=== PATIENT | female | born 1995 | race Two or more races ===

== ENCOUNTER 2021-05-13 14:22 | Outpatient (CLI) | payer OTHER | END 2021-05-13 15:50 | disposition home or self-care (01) | LOC: PRENATAL 14:22 | PROVIDERS: ATTEND Obstetrics & Gynecology Maternal & Fetal Medicine | DX: O35.0XX1 Maternal care for (suspected) central nervous system malformation in fetus, fetus 1 (principal); O35.3XX1 Maternal care for (suspected) damage to fetus from viral disease in mother, fetus 1; O98.512 Other viral diseases complicating pregnancy, second trimester; Z36.89 Encounter for other specified antenatal screening; Z3A.26 26 weeks gestation of pregnancy ==

== ENCOUNTER 2021-07-20 19:32 | Outpatient (CLI) | payer OTHER | END 2021-07-20 23:27 | disposition home or self-care (01) | LOC: NST 19:32 → OBS/DEL 19:32 | PROVIDERS: ATTEND Obstetrics & Gynecology | DX: O36.8130 Decreased fetal movements, third trimester, not applicable or unspecified (principal); O34.211 Maternal care for low transverse scar from previous cesarean delivery; Z3A.36 36 weeks gestation of pregnancy ==

== ENCOUNTER 2021-08-08 08:08 | Inpatient (IN) | payer OTHER ==
[~2021-08-08] VITALS: Ht 157.5 cm; Wt 2.7 kg
[2021-08-08] MEDS ORDERED: PRENATAL TABLE1 EAC1 PO (08:53)
== END 2021-08-11 13:29 | disposition home or self-care (01) | DRG 788 ==
LOC: OB/GYN 08:08 → LDR 08:08 → OB/GYN 14:32
PROVIDERS: ADMIT Obstetrics & Gynecology; ATTEND Obstetrics & Gynecology
PROC: 4A1HXCZ Monitoring of Products of Conception, Cardiac Rate, External Approach (ICD-10-PCS; 2021-08-08)
PROC: 10D00Z1 Extraction of Products of Conception, Low, Open Approach (ICD-10-PCS; principal; 2021-08-08 14:15)
DX: O34.211 Maternal care for low transverse scar from previous cesarean delivery (principal); Z20.822 Contact with and (suspected) exposure to COVID-19; Z37.0 Single live birth; Z3A.38 38 weeks gestation of pregnancy